=== PATIENT | female | born 1975 | race Caucasian/White ===

== ENCOUNTER → 2021-08-11 | Outpatient (CLI) | payer OTHER ==
[~2021-08-11] MED LIST: GLUCOPHAGE1000 MG PO; IBU800 MG PO; IRON PO; KEFLEX CAP 500500 MG PO; LAMISIL TAB 25250 MG PO; LANTUS SOL100 UNIT/1 SQ; NORCO 5-325 TA1 EACH PO; NORCO 7.5-3251 EACH PO; NOVOLOG100 UNIT/1 SC; RANITIDINE HCL300 MG PO; ZOLOFT50 MG PO
== END ==
LOC: KOH-I 09:39
DX: M25.561 Pain in right knee (principal); M25.562 Pain in left knee
CPT/HCPCS: 73564